=== PATIENT | female | born 1950 | race Caucasian/White ===

== ENCOUNTER 2017-01-25 05:24 | Inpatient (IN) | payer OTHER ==
[2017-01-10 13:01] LABS: HEMATOCRIT 40.9 % (37.0-47.0); HEMOGLOBIN 14.2 gm/dL (12.0-15.0); MCH 29.9 pg (26.0-34.0); MCHC 34.7 g/dL (28.0-37.0); MCV 86.4 fL (80.0-100.0); RBC 4.73 mil/uL (4.20-5.00); RDW 12.8 % (10.5-14.5); WBC 9.1 thou/uL (4.0-11.0)
[2017-01-10 13:09] LABS: ALBUMIN 3.6 g/dL (3.4-5.0); CALCIUM 9.2 mg/dL (8.5-10.1); CREATININE 0.8 mg/dL (0.6-1.0); POTASSIUM 4.2 mmol/L (3.5-5.1)
[2017-01-10 13:15] LABS: PROTIME 10.3 Seconds (9.3-11.4)
[2017-01-10 13:26] LABS: URINE BILIRUBIN NEGATIVE (Negative); URINE BLOOD TRACE (Negative); URINE COLOR YELLOW; URINE GLUCOSE-RANDOM* TRACE (Negative); URINE KETONES NEGATIVE (Negative); URINE LEUKOCYTES-REFLEX TRACE (Negative); URINE PROTEIN (DIPSTICK) NEGATIVE (Negative); URINE UROBILINOGEN 0.2 E.U./dl (0.2-1.0)
[2017-01-25] VITALS (10 sets, daily range): BP systolic 143–174; BP diastolic 68–92
[~2017-01-25] VITALS: Ht 180.3 cm; Wt 76.7 kg
--- NOTE | ~2017-01-25 | H ---
[facility] [place] [address] HISTORY AND PHYSICAL Name: DEYA PRESTON Room #: 542-P ADM IN M.R.#: [id number] Admission: 01/25/17 Attend Phys: Blane Oakley MD Discharge: Date of : 46 Report #: [id number] THIS REPORT FOR: //name// For History and Physical, please see office documentation/handwritten note in the patient's medical record. By: 1150 Blane Oakley MD /
--- NOTE | ~2017-01-25 | O ---
[facility] [place] [address] OPERATIVE REPORT Name: DEYA PRESTON Room #: 542-P ADM IN M.R.#: [id number] Admission: 01/25/17 Attend Phys: Blane Oakley MD Discharge: Date of : 46 Report #: [id number] THIS REPORT FOR: //name// CC: YARON Oakley DATE OF SERVICE: 01/25/2017 PREOPERATIVE DIAGNOSIS: Right knee medial compartment degenerative joint changes. POSTOPERATIVE DIAGNOSIS: Right knee medial compartment degenerative joint changes. PROCEDURE: Right knee unicompartmental knee replacement. SURGEON: Blane Oakley M.D. TELEPHONE PLANT POWER OPERATOR: Rodolfo Aparicio, nurse practitioner. INDICATIONS FOR TELEPHONE PLANT POWER OPERATOR: During the course of operation, extensive manipulation, retraction and limb positioning was required. This was afforded to me by my nurse practitioner physician assistant. ANESTHETIC: General. INDICATIONS: See hospital H and P. DESCRIPTION OF PROCEDURE: After adequate general anesthesia had been obtained, the patient's right lower extremity was prepped and draped in the usual meticulous sterile fashion. Limb was exsanguinated with gravity, tourniquet inflated to 300 torr. Anterior midline incision was made and subQ divided sharply. Medial parapatellar incision was made. Infrapatellar fat pad was partially excised. The tibial osteophytes were removed with the osteotome and rongeur. The tibial cutting guide was then placed into position. The reciprocal and transverse cuts were made. We placed the spacer into position. She was still a little tight with the 3-mm spacer. So, we took an additional 3 mm and this resulted in improved balance with the 5-mm spacer. The tibia was a size B; tibial tray was a size B. We then placed the intramedullary guide into the femur. We placed the drill guide for the femoral component into position in the appropriate alignment and distal drill holes were placed. The posterior femoral cutting guide was impacted into place and the posterior femoral cut was made. We then used the zero spigot to ream the distal femur. We put the trial components into position. We then checked the flexion and extension gap. The [address] [address] OPERATIVE REPORT Name: DEYA PRESTON Arnulfo Room #: 542-P [facility] IN M.R.#: [id number] Admission: 01/25/17 Attend Phys: Blane Oakley MD Discharge: Date of : 46 Report #: [id number] flexion gap remained at 5 mm and extension gap was 2 mm. So, we took an additional 3 mm of the distal femur. The trial components were put into position. Once again, we got a good balance, flexion and extension. At this time, the tibial keel cut was made and the keel component was put in position using the meniscal bearing unit and with a 5 meniscal bearing, we had good flexion and extension gap and we removed the bone anteriorly to prevent impingement and extension. Trial components were then removed. The implants were put on to the field. The distal femur was drilled and the knee was irrigated with pulse lavage and antibiotic irrigation. The cement was vacuum mixed and when it reached the appropriate consistency, the tibia and the femoral prepared condyle were dried thoroughly. The components were cemented into position. Excess cement was removed. We put a 6 spacer in between for compression and this resulted and improved and then we held it in 30 degrees of flexion with uniform compression placed across the components until the cement fully cured. When it had done so, the knee was irrigated, dried thoroughly and inspected. We trialled the meniscal bearing and it seems like we got a little bit better stability with a 6-mm meniscal bearing unit and she had good tracking and so we elected to use this. It was then put into position after copious irrigation. At this time, the retinacular layer was closed with combination of interrupted [id number] #1 Vicryl as well as running #1 Tevdek. SubQ was closed with 2-0 Monocryl, skin closed with anna. Sterile compressive dressing was applied. Tourniquet deflated. By: [id number] Blane Oakley MD /altaf
[~2017-01-25 05:24] MED LIST: COREG6.25 MG PO; DIOVAN 80 MG TA80 M1 PO
[2017-01-26 00:47] VITALS: BP 147/79
[2017-01-26 07:07] LABS: HEMATOCRIT 37.6 % (37.0-47.0); HEMOGLOBIN 12.8 gm/dL (12.0-15.0); MCH 29.3 pg (26.0-34.0); MCHC 33.9 g/dL (28.0-37.0); MCV 86.5 fL (80.0-100.0); RBC 4.35 mil/uL (4.20-5.00); RDW 12.9 % (10.5-14.5); WBC 9.9 thou/uL (4.0-11.0)
[2017-01-26 07:21] LABS: CALCIUM 8.7 mg/dL (8.5-10.1); CREATININE 0.8 mg/dL (0.6-1.0); MAGNESIUM 2.1 mg/dL (1.8-2.4); POTASSIUM 3.2 mmol/L (3.5-5.1)
[2017-01-26 10:37] VITALS: BP 141/76
[2017-01-26 17:41] VITALS: BP 149/64
[2017-01-26 21:00] VITALS: BP 161/74
[2017-01-27 05:54] VITALS: BP 165/81
[2017-01-27 06:11] LABS: HEMATOCRIT 38.9 % (37.0-47.0); HEMOGLOBIN 13.2 gm/dL (12.0-15.0); MCH 29.5 pg (26.0-34.0); MCHC 34.1 g/dL (28.0-37.0); MCV 86.5 fL (80.0-100.0); RBC 4.49 mil/uL (4.20-5.00); RDW 13.1 % (10.5-14.5); WBC 8.9 thou/uL (4.0-11.0)
[2017-01-27 06:22] LABS: CALCIUM 8.7 mg/dL (8.5-10.1); CREATININE 0.7 mg/dL (0.6-1.0); MAGNESIUM 2.2 mg/dL (1.8-2.4); POTASSIUM 3.5 mmol/L (3.5-5.1)
[2017-01-27] MEDS ORDERED: ASPIRIN325 PO (06:54)
[2017-01-27] MEDS ORDERED: HYDROCODONE-APA1 TA1 PO (06:54)
[2017-01-27 07:30] VITALS: BP 144/63
[2017-01-27 10:30] VITALS: BP 129/63
[2017-01-27] MEDS ORDERED: KLOR-CON M2020 MEQ PO (10:55)
[2017-01-27 17:03] VITALS: BP 129/63
== END 2017-01-27 13:05 | disposition home health service (06) | DRG 470 ==
LOC: 5S 05:24 → TBA 05:24 → PRE 09:25 → 5S 12:02 → PRE 13:19 → 5S 01-27 13:05
PROVIDERS: Internal Medicine; Nurse Practitioner; Orthopaedic Surgery
PROC: 0SRC0L9 Replacement of Right Knee Joint with Medial Unicondylar Synthetic Substitute, Cemented, Open Approach (ICD-10-PCS; principal; 2017-01-25)
DX: M17.11 Unilateral primary osteoarthritis, right knee (principal); I10 Essential (primary) hypertension; Z85.3 Personal history of malignant neoplasm of breast; E87.6 Hypokalemia; Z88.1 Allergy status to other antibiotic agents; Z88.8 Allergy status to other drugs, medicaments and biological substances; Z90.710 Acquired absence of both cervix and uterus; Z90.11 Acquired absence of right breast and nipple; Z81.1 Family history of alcohol abuse and dependence
CPT/HCPCS: 10785; 50010; 50101; 50415; 51130; 51225; 51320; 51412; 51771; 52001; 52056; 52282; 53078; 53370; 55262; 56525; 56527; 57095; 62110; 62900; 70005